=== PATIENT | female | born 1995 | race Caucasian/White ===

== ENCOUNTER 2017-08-01 14:41 | Emergency (ER) | payer BC ==
[2017-08-01] MEDS ORDERED: NS 0.9% 1000 ML* 1,000 ML IV ONE (17:16)
[2017-08-01] MEDS ORDERED: diPHENhydraMINE IV* 50 MG/ML 1 ml VIAL (BENADRYL) IV ONE (17:16)
[2017-08-01] MEDS ORDERED: Ketorolac INJ* 30 MG/ML 1 ML VIAL IV PUSH ONE (17:16)
[2017-08-01] MEDS ORDERED: Ondansetron INJ* 2 MG/ML VIAL IV ONE (17:16)
--- NOTE | 2017-08-01 17:29 | ED ---
Headache - HPI Summary HPI Summary: Pt here w/ JAY x 3 days. Started after eating gluten - pt has celiac dz and develops migraines when she eats this. These start at the base of her neck and travel to eyes - this headache is taking the same course it usually does with gluten ingestion but lasting longer than usual. She had her typical headache pain w/ nausea and 1x vomiting on day one. Has been trying to rest, hydrate and take ibuprofen/acetaminophen but is not having relief of sx. Headache lingers and has moved into her eyes - no change in vision, but has retro-ocular pain worse w/ eye movements. She has not eaten much in past 3 days as nausea from headache has caused her to have reduced appetite. Denies fever, chills, ST, otalgia, sneezing, coughing, chest pain, SOB, ab pain, rash. Had some neck tightness/soreness along with diffuse joints aches at onset as well - this resolved after 2 days (again, achiness is typical of gluten ingestion). No recent illness and imms are UTD. No trauma Takes OBC since 14 y.o. - have never triggered issue with JAY's Sexually active with women - no vaginal sx and no risk of - History Of Current Complaint Chief Complaint: EDHeadache Stated Complaint: MIGRAINE Time Seen by Provider: 08/01/17 16:32 Hx Obtained From: Patient, Family/Ecosystem Ecology Professor - mom is present w/ pt Hx Last Menstrual Period: 2 WEEKS AGO - Allergies/Home Medications Allergies/Adverse Reactions: Allergies Allergy/AdvReac Type Severity Reaction Status Date / Time Environmental Allergies Allergy Congestion Uncoded 11/23/15 11:19 PMH/Surg Hx/FS Hx/Imm Hx Previously Healthy: Yes Endocrine/Hematology History: Reports: Hx Anemia - ON IRON - controlled Denies: Hx Diabetes, Hx Thyroid Disease Cardiovascular History: Denies: Hx Congestive Heart Failure, Hx Hypertension, Hx Pacemaker/ICD Respiratory History: Reports: Hx Asthma - A CHILD Denies: Hx Chronic Obstructive Pulmonary Disease (COPD) GI History: Reports: Other GI Disorders - Celiac dz - controlled Denies: Hx Ulcer History: Denies: Hx Dialysis, Hx Renal Disease Musculoskeletal History: Reports: Other Musculoskeletal History - COMPARTMENT SYNDROME BILATERAL LOWER LEGS 2014 Denies: Hx Rheumatoid Arthritis, Hx Osteoporosis Sensory History: Reports: Hx Contacts or Glasses - BOTH, WILL WEAR GLASSES Denies: Hx Hearing Aid Opthamlomology History: Reports: Hx Contacts or Glasses - BOTH, WILL WEAR GLASSES Neurological History: Reports: Hx Migraine - RARELY, Hx Seizures - 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 WISDOM TEETH EXTRACTION Hx Anesthesia Reactions: No Infectious Disease History: Yes Infectious Disease History: Reports: Traveled Outside the [place] in Last 30 Days - [place] Denies: Hx Hepatitis, Hx Human Immunodeficiency Virus (HIV) - Family History Known Family History: Positive: None - Social History Occupation: Student Lives: Dormitory/Roommates Alcohol Use: Rare Hx Substance Use: No Substance Use Type: Reports: None Hx Tobacco Use: No Smoking Status (MU): Never Smoked Tobacco Review of Systems Constitutional: Negative Negative: Fever, Chills Positive: Photophobia. Negative: Blurred Vision, Diplopia, Drainage, Erythema ENT: Negative Negative: Epistaxis, Dental Pain, Sore Throat, Ear Ache, Nasal Discharge Cardiovascular: Negative Negative: Palpitations, Chest Pain Respiratory: Negative Negative: Shortness Of Breath, Cough Positive: Nausea. Negative: Abdominal Pain, Vomiting, Diarrhea Genitourinary: Negative Negative: burning, dysuria, discharge, frequency, flank pain, hematuria, incontinence, pain, urgency Musculoskeletal: Negative - none today Skin: Negative Negative: Rash, Bruising Positive: Headache. Negative: Weakness, Paresthesia, Numbness, Syncope, Slurred Speech Psychological: Normal All Other Systems Reviewed And Are Negative: Yes Physical Exam Triage Information Reviewed: Yes Vital Signs On Initial Exam: Initial Vitals Temp Pulse Resp BP Pulse Ox 97.4 F 80 16 118/66 98 08/01/17 14:54 08/01/17 14:54 08/01/17 14:54 08/01/17 14:54 08/01/17 14:54 Vital Signs Reviewed: Yes Appearance: Positive: Well-Appearing, No Pain Distress, Well-Nourished Skin: Positive: Warm, Dry - no rash Head/Face: Positive: Normal Head/Face Inspection - NTTP Eyes: Positive: Normal, EOMI, MAURILIO - photophobia (mild), Conjunctiva Clear. Negative: Conjunctiva Inflammed, Discharge ENT: Positive: Normal ENT inspection, Hearing grossly normal, Pharyngeal erythema - cobblestoning, TMs normal. Negative: Nasal congestion, Nasal drainage, Tonsillar swelling, Tonsillar exudate, Trismus, Muffled voice Neck: Positive: Supple, Nontender, No Lymphadenopathy Respiratory/Lung Sounds: Positive: Clear to Auscultation, Breath Sounds Present Cardiovascular: Positive: Normal, RRR, S1, S2. Negative: Murmur, Rub Abdomen Description: Positive: Nontender, No Organomegaly, Soft. Negative: CVA Tenderness (R), CVA Tenderness (L) Bowel Sounds: Positive: Present Pelvic Exam: Positive: other - deferred Musculoskeletal: Positive: Normal, Strength/ROM Intact Neurological: Positive: Normal, Sensory/Motor Intact, Alert, Oriented to Person Place, Time, CN Intact II-III, Other - (-) Julianna; (-) [facility] - Vital Signs Vital Signs Temp Pulse Resp BP Pulse Ox 08/01/17 14:54 97.4 F 80 16 118/66 98 - Laboratory Result Diagrams: 08/01/17 17:26 08/01/17 17:26 Lab Statement: Any lab studies that have been ordered have been reviewed, and results considered in the medical decision making process. Re-Evaluation - Re-Evaluation First Eval Change: Improved - pt reports she feels so much better - eye pain resolved, JAY improved - was able to rest comfortably Headache Course/Dx - Course Course Of Treatment: Pt here w/ migraine suspected to be triggered by gluten ingestion. Relief provided here w/ migraine cocktail - pt ready for d/c. Discussed f/u care - avoiding gluten, stay hydrated, etc. F/u w/ PCP if symptoms return and if much worse, return to ED. - Diagnoses Provider Diagnoses: Migraine Discharge - Discharge Plan Condition: Stable Disposition: HOME Patient Education Materials: Migraine Headache (ED) Referrals: Jolie Solo DO [Primary Care Provider] - Additional Instructions: Your migraine may have been triggered by gluten ingestion. Avoid as much as possible. In the meantime, rest, stay hydrated and eat a balanced diet Follow-up with PCP if symptoms return or return to ED if intractable pain returns
[2017-08-01 17:42] LABS: Hematocrit 42 % (35-47); Hemoglobin 14.8 g/dl (12.0-16.0); Mean Corpuscular HGB Conc 35 g/dl (31-36); Mean Corpuscular Hemoglobin 30 pg (27-31); Mean Corpuscular Volume 87 fL (80-97); Mean Platelet Volume 9 um3 (7.4-10.4); Red Blood Count 4.87 10^6/ul (4.0-5.4); Red Cell Distribution Width 13 % (10.5-15); White Blood Count 3.8 10^3/ul (3.5-10.8)
[2017-08-01 17:54] LABS: Albumin 3.9 g/dL (3.2-5.2); BUN/Creatinine Ratio 12.9 (8-20); C Reactive Protein 9.25 mg/L (< 5.00); Calcium 9.2 mg/dL (8.6-10.3); EGFR African American 159.5 (>60); Globulin 3.2 g/dL (2-4); Magnesium 1.8 mg/dL (1.9-2.7); Potassium 3.4 mmol/L (3.5-5.0); Total Bilirubin 0.4 mg/dL (0.2-1.0); Total Protein 7.1 g/dL (6.4-8.9)
[2017-08-01 18:37] LABS: TSH (Thyroid Stimulating Horm) 2.69 mcIU/mL (0.34-5.60)
[2017-08-01 19:07] VITALS: BP 97/55
== END 2017-08-01 19:05 | disposition home or self-care (01) ==
LOC: ED 14:41
DX: G43.909 Migraine, unspecified, not intractable, without status migrainosus (principal); D64.9 Anemia, unspecified; K90.0 Celiac disease; F41.9 Anxiety disorder, unspecified
CPT/HCPCS: 36415; 80053; 83605; 83735; 84443; 85025; 86140; 99284; J1200; J1885; J2405